=== PATIENT | male | born 1970 | race Caucasian/White ===

== ENCOUNTER → 2024-07-21 | Outpatient (CLI) | payer BC ==
[~2024-07-21] MED LIST: Iohexol 300 - 100 ML VIAL IV ONE; NS 100 ML IV ONE
== END ==
LOC: RAD 10:00
DX: C61 Malignant neoplasm of prostate (principal); K76.0 Fatty (change of) liver, not elsewhere classified; I70.0 Atherosclerosis of aorta
CPT/HCPCS: Q9967